=== PATIENT | male | born 1975 | race Caucasian/White ===

== ENCOUNTER 2017-04-08 20:58 | Emergency (ER) | payer OTHER ==
[2017-04-08 21:28] VITALS: BP 125/71; PULSE 75; TEMP 98.5; BMI 46.9
--- NOTE | 2017-04-08 22:36 | PDOC ---
History of Present Illness <Lili Belle - Last Filed: 04/08/17 23:40> - General History Source: Patient Exam Limitations: No Limitations - History of Present Illness Initial Comments: 04/08/17 22:30 41yo Male patient w/ PmHx: Erectile Dysfunction recently on testosterone replacement therapy, which has since stopped and he was prescribed Cialis. Patient c/o RLE pain across dorsal aspect of right foot radiating up lateral aspect of right ortega. He states symptoms began yesterday. He denies fall, injury , trauma, fever, cough, back pain, CP, Diff breathing, or any other complaints at this time. No OTC medication use reported. Occurred: reports: yesterday Severity: Yes: mild Lower Extremity Pain Location: right: leg Method of Injury: No: unknown, assault, burn, direct blow, fell, incised, motor vehicle accident, sports injury, twisted, other Modifying Factors: worse with: None, cold therapy, immobilization, pain medication, rest, other Associated Symptoms: None <Tonja Zamudio - Last Filed: 04/09/17 00:01> - General Chief Complaint: Pain Stated Complaint: LEG PAIN Time Seen by Provider: 04/08/17 21:58 Lower Ext. Injury Location - Specific Injury Location Legs: right: soft tissue tenderness, pain, left: non-tender, bilateral: normal inspection, normal range of motion <Tonja Zamudio - Last Filed: 04/09/17 00:01> Extremity Pain Location - Extremity Pain Location Extremity Pain Locations: right: leg <Tonja Zamudio - Last Filed: 04/09/17 00:01> Past History <Lili Belle - Last Filed: 04/08/17 23:40> - Travel Traveled outside of the country in the last 30 days: No Close contact w/someone who was outside of country & ill: No - Past Medical History Disorders: Yes (ED) - Suicide/Smoking/Psychosocial Hx Smoking History: Never smoked Have you smoked in the past 12 months: No Information on smoking cessation initiated: No Hx Alcohol Use: No Drug/Substance Use Hx: No Substance Use Type: None <Tonja Zamudio - Last Filed: 04/09/17 00:01> - Past Medical History Allergies/Adverse Reactions: Allergies Allergy/AdvReac Type Severity Reaction Status Date / Time No Known Allergies Allergy Verified 04/08/17 21:25 Home Medications: Ambulatory Orders Ibuprofen 800 mg PO Q6H PRN #20 tablet 04/08/17 Review of Systems - Review of Systems Able to Perform ROS?: Yes Is the patient limited [place] proficient: No Musculoskeletal: Yes: Other (Leg Pain) All Other Systems: Reviewed and Negative <Tonja Zamudio - Last Filed: 04/09/17 00:01> *Physical Exam - Vital Signs Last Vital Signs Temp Pulse Resp BP Pulse Ox 98.5 F 75 20 125/71 98 04/08/17 21:26 04/08/17 21:26 04/08/17 21:26 04/08/17 21:26 04/08/17 21:26 <Lili Belle - Last Filed: 04/08/17 23:40> - Vital Signs Last Vital Signs Temp Pulse Resp BP Pulse Ox 98.5 F 75 20 125/71 98 04/08/17 21:26 04/08/17 21:26 04/08/17 21:26 04/08/17 21:26 04/08/17 21:26 - Physical Exam General Appearance: Yes: Nourished, Appropriately Dressed. No: Apparent Distress, Mild Distress, Moderate Distress, Severe Distress Respiratory/Chest: positive: Lungs Clear, Normal Breath Sounds. negative: Chest Tender, Respiratory Distress, Accessory Muscle Use, Labored Respiration, Rapid RR Cardiovascular: positive: Regular Rhythm, Regular Rate Gastrointestinal/Abdominal: positive: Normal Bowel Sounds, Soft. negative: Distended, Guarding, Rebound, Tenderness Musculoskeletal: positive: Normal Inspection. negative: CVA Tenderness, Decreased Range of Motion, Vertebral Tenderness Extremity: positive: Normal Capillary Refill, Normal Inspection, Normal Range of Motion, Other (No redness, tenderness, swelling, inflammation, or signs of infection or injury noted.). negative: Pedal Edema, Swelling, Calf Tenderness, Erythema, Inflammation Integumentary: positive: Normal Color, Dry, Warm Neurologic: positive: plant quality manager II-XII NML intact, Fully Oriented, Alert, Normal Mood/ Affect, Normal Response, Motor Strength 5/5 <Tonja Zamudio - Last Filed: 04/09/17 00:01> ED Treatment Course - LABORATORY CBC & Chemistry Diagram: 04/08/17 21:15 04/08/17 23:15 - ADDITIONAL ORDERS Additional order review: 04/08/17 21:15 RBC 5.03 MCV 88.0 MCHC 33.4 RDW 14.2 MPV 8.8 Neutrophils % 36.6 L Lymphocytes % 46.9 H Monocytes % 12.7 H Eosinophils % 2.9 Basophils % 0.9 - RADIOLOGY Radiograph Interpretation: 04/08/17 23:40 EXAM: Right lower extremity duplex venous ultrasound HISTORY:Right leg pain COMPARISON: None. FINDINGS Negative for right lower extremity deep venous thrombosis Robert Isabel MD 04/08/2017 23:24 EST <Lili Belle - Last Filed: 04/08/17 23:40> - LABORATORY CBC & Chemistry Diagram: 04/08/17 21:15 04/08/17 23:15 - RADIOLOGY Radiology Studies Ordered: Category Date Time Status DUPLEX VASCUL US-1 LEG [US] Stat Ultrasound 04/08/17 22:26 Ordered <Tonja Zamudio - Last Filed: 04/09/17 00:01> *DC/Admit/Observation/Transfer - Attestations Scribe Attestion: 04/08/17 23:40 Documentation prepared by Lili Belle, acting as bacteriologist medical for Sid Zamudio NP. <Lili Belle - Last Filed: 04/08/17 23:40> - Discharge Dispostion Admit: No <Tonja Zamudio - Last Filed: 04/09/17 00:01> Diagnosis at time of Disposition: Nerve pain Leg pain Qualifiers: Laterality: right Qualified Code(s): M79.604 - Pain in right leg; M79.604 - Pain in right leg - Discharge Dispostion Disposition: HOME Condition at time of disposition: Stable - Prescriptions Prescriptions: Ibuprofen 800 mg PO Q6H PRN #20 tablet PRN Reason: Leg Pain - Referrals Referrals: Benny Duffy MD [Primary Care Provider] - Robert Palmer MD [Staff Physician] - - Patient Instructions Printed Discharge Instructions: Neuropathic Pain, DI for Leg Pain Additional Instructions: Follow up with Dr. Palmer (Neurology) this week for further evaluation. Call to schedule appointment. Take medications as prescribed and return if your symptoms worsen or any concerns for further evaluation. Print Language: DANISH
[2017-04-08 23:23] LABS: BASOPHIL 0.9 % (0-2.0); EOSINOPHIL 2.9 % (0-4.5); MCH 29.4 pg (25.7-33.7); MCHC 33.4 g/dl (32.0-35.9); MEAN PLT VOLUME 8.8 fl (7.5-11.1); NEUTROPHILS 36.6 % (42.8-82.8); PLATELET COUNT 193 K/MM3 (134-434); RDW 14.2 % (11.9-15.9); WHITE BLOOD COUNT 6.6 K/mm3 (4.0-10.0)
[2017-04-08 23:36] LABS: INR 1.11 (0.82-1.09); PROTHROMBIN TIME (PATIENT) 12.2 SEC (9.98-11.88)
[2017-04-08 23:38] LABS: ACTIVATED PTT 32.9 SECONDS (26.9-34.4)
[2017-04-08] MEDS ORDERED: DEXAMETHASONE SOD PHOSPHATE 10 MG/1 ML VIAL IM ONE (23:46)
[2017-04-08 23:50] LABS: ALBUMIN 3.4 g/dl (3.4-5.0); ALK PHOS 86 U/L (45-117); ANION GAP 10 (8-16); BILIRUBIN,TOTAL 0.4 mg/dL (0.2-1.0); CALCIUM 8.4 mg/dL (8.5-10.1); CO2 25 mmol/L (21-32); CREATININE 0.9 mg/dL (0.7-1.3); GLUCOSE,RANDOM 116 mg/dL (74-106); SGOT/AST 21 U/L (15-37); SGPT/ALT 33 U/L (12-78); TOT PROT 7.1 g/dl (6.4-8.2)
[2017-04-08] MEDS ORDERED: KETOROLAC TROMETHAMINE 60 MG/2 ML VIAL IM ONE (23:50)
[2017-04-09] MEDS ORDERED: KETOROLAC TROMETHAMINE 60 MG/2 ML VIAL ONE (00:07)
[2017-04-09] MEDS ORDERED: DEXAMETHASONE SOD PHOSPHATE 10 MG/1 ML VIAL ONE (00:07)
== END 2017-04-09 00:19 | disposition home or self-care (01) ==
LOC: JER 20:58
PROC: 3E0233Z Introduction of Anti-inflammatory into Muscle, Percutaneous Approach (ICD-10-PCS; principal; 2017-04-08)
PROC: 3E023GC Introduction of Other Therapeutic Substance into Muscle, Percutaneous Approach (ICD-10-PCS; 2017-04-08)
DX: G58.8 Other specified mononeuropathies (principal); M79.661 Pain in right lower leg
CPT/HCPCS: 36415; 80053; 85025; 85610; 85730; 93971-TC; 99281-25

== ENCOUNTER 2020-03-01 16:02 | Emergency (ER) | payer OTHER ==
[2020-03-01] MEDS ORDERED: ACETAMINOPHEN 500 MG TABLET (FP) PO ONE (16:07)
--- NOTE | 2020-03-01 16:10 | PDOC ---
Rapid Medical Evaluation Time Seen by Provider: 03/01/20 16:06 Medical Evaluation: Allergies Allergy/AdvReac Type Severity Reaction Status Date / Time No Known Allergies Allergy Verified 04/08/17 21:25 03/01/20 16:09 CC: fever, fatigue, body aches x 2 days, works as a tech at [employer] Exam: tachy, febrile, lcta, no resp distree Plan: tylenol, covid 03/01/20 16:10 HPI: COVID-19 CDC guideline data points: The patient is a 44 M presents with possible exposure to, suspected, or confir med] COVID-19 with associated symptoms of [fever, dry cough, complicated by obesity ROS: NEGATIVE: difficulty breathing, shortness of breath, chest pain, lightheadedness, dizziness, nausea, vomiting and diarrhea. Other 12 point ROS reviewed and negative. Exam: General: NAD, Well-Appearing, Awake, Alert Oriented x3. ENT: No rhinorrhea or nasal congestion. Neck: FROM, no midline tenderness. Lungs: Clear to auscultation bilaterally without wheezes, rhonchi or rales. Normal excursion. Patient is able to speak in full sentences. Heart: HR: tachycardic Abdomen: Non-distended. MSK/Extremities: No decrease ROM, No obvious deformities. No obvious cyanosis noted. Neuro: Normal Gait, Cranial Nerves II through XII Grossly Intact. Skin: No obvious rashes, bruising. Color Normal Appearing. Assessment/Plan: [Cough/fever] Patient has a history of obesity denies recent travel Covid and tylenol ordered Discharge Disposition - Diagnosis Fever - Discharge Dispostion Disposition: HOME Condition at time of disposition: Good - Referrals Referrals: Benny Duffy MD [Primary Care Provider] - - Patient Instructions - Post Discharge Activity Work/School Note: Back to Work Activity Comments: Please take tylenol for fever and pain. Drink plenty of fluids Stay active We will call you with the results within 1-2 days
[2020-03-01 16:21] VITALS: BP 155/98; PULSE 107; TEMP 101.6; BMI 48.7
[2020-03-01] MEDS ORDERED: ACETAMINOPHEN 325 MG TABLET (FP) ONE (16:35)
== END 2020-03-01 16:40 | disposition home or self-care (01) ==
LOC: JER 16:02
DX: U07.1 COVID-19 (principal)
CPT/HCPCS: 87070; 87880; 99283-25; U0003

== ENCOUNTER 2021-06-21 05:36 | Emergency (ER) | payer OTHER ==
[2021-06-21] MEDS ORDERED: ACETAMINOPHEN 500 MG TABLET (FP) PO ONE (05:53)
[2021-06-21 06:14] VITALS: BMI 48.7
[2021-06-21] MEDS ORDERED: ACETAMINOPHEN 325 MG TABLET (FP) ONE (06:27)
[2021-06-21 08:08] VITALS: BP 114/74; PULSE 100; TEMP 99.9
== END 2021-06-21 08:08 | disposition home or self-care (01) ==
LOC: JER 05:36
DX: B34.9 Viral infection, unspecified (principal)
CPT/HCPCS: 87804; 93005; 93010; 99284-25; C9803; U0003; U0005

== ENCOUNTER 2024-03-10 02:29 | Emergency (ER) | payer OTHER ==
[2024-03-10 02:42] VITALS: BMI 44.9
[2024-03-10] MEDS: ACETAMINOPHEN 500 MG TABLET (FP) PO ONE (03:09)
[2024-03-10] MEDS ORDERED: ACETAMINOPHEN 325 MG TABLET (FP) ONE (03:10)
[2024-03-10 04:24] LABS: HIV INTERPRETATION NEGATIVE (NEGATIVE)
[2024-03-10 04:39] VITALS: RESP 19
[2024-03-10] MEDS: SODIUM CHLORIDE 0.9% 500 ML INFUS.BAG IV ONE (04:47)
[2024-03-10 06:02] VITALS: BP 106/59; PULSE 105; TEMP 99.9
[2024-03-10] MEDS ORDERED: IBUPROFEN 400 MG TABLET (FP) PO ONE (06:09)
[2024-03-10] MEDS: IBUPROFEN 400 MG TABLET (FP) PO ONE (06:22)
== END 2024-03-10 06:22 | disposition home or self-care (01) ==
LOC: JER 02:29
DX: R51.9 Headache, unspecified (principal); B34.9 Viral infection, unspecified; R53.83 Other fatigue; R68.83 Chills (without fever); R00.0 Tachycardia, unspecified; Z20.822 Contact with and (suspected) exposure to COVID-19
CPT/HCPCS: 0241U-QW; 36415; 86803; 87389; 93005; 93010; 99284-25

== ENCOUNTER 2024-03-21 22:50 | Day surgery (SDC) | payer OTHER ==
[2024-03-21 22:58] VITALS: BMI 44.9
[2024-03-22 00:58] LABS: BASO % 0.2 % (0-2.0); EOS % 0.1 % (0-4.5); HEMATOCRIT 48.9 % (35.4-49); HEMOGLOBIN 16.5 GM/dL (11.7-16.9); MCHC 33.7 g/dl (32.0-35.9); MEAN CELL VOLUME 86.1 fl (80-96); MEAN PLT VOLUME 8.3 fl (7.5-11.1); NEUT % 73.7 % (42.8-82.8); PLATELET COUNT 262 10^3/uL (134-434); RBC 5.67 M/mm3 (4.00-5.60); RDW 14.4 % (11.9-15.9); WHITE BLOOD COUNT 13.5 K/mm3 (4.0-10.0)
[2024-03-22 01:04] LABS: INR 1.1 (0.83-1.09); PROTHROMBIN TIME (PATIENT) 12.6 SEC (9.7-13.0)
[2024-03-22 01:07] LABS: ACTIVATED PTT 33.8 SECONDS (25.2-36.5)
[2024-03-22] MEDS: FAMOTIDINE 20 MG/50 ML IVPB 20 MG/50 ML MG IVPB ONE (01:12)
[2024-03-22] MEDS: morphine CARPU-JECT 2 MG/1 ML DISP.SYRIN IVPUSH ONE ×2 (01:12→07:01)
[2024-03-22] MEDS: ACETAMINOPHEN 1000 MG/100 ML BAG IVPB ONE ×2 (01:12→07:01)
[2024-03-22] MEDS ORDERED: FAMOTIDINE 20 MG/50 ML IVPB 20 MG/50 ML MG IVPB ONE (01:15)
[2024-03-22] MEDS ORDERED: ACETAMINOPHEN INJECTION 100 ML ONE ×3 (01:15→12:45)
[2024-03-22] MEDS ORDERED: MORPHINE SULFATE 2 MG/ML SYRINGE ONE ×2 (01:15→06:53)
[2024-03-22 01:32] LABS: POTASSIUM 3.9 mmol/L (3.5-5.1)
[2024-03-22 01:34] LABS: CALCIUM 9.1 mg/dL (8.5-10.1)
[2024-03-22 01:35] LABS: ALBUMIN 3.5 g/dl (3.4-5.0); BLOOD UREA NITROGEN 13.1 mg/dL (7-18)
[2024-03-22 01:38] LABS: CREATININE 0.9 mg/dL (0.55-1.3)
[2024-03-22 01:39] LABS: TOT PROT 7.3 g/dl (6.4-8.2)
[2024-03-22 02:39] LABS: EPI CELLS 34 /uL (0-25.1); HYALINE CASTS 5 /uL (0-3.1); PH,URINE 6.5 (5.0-8.0); URINE APPEARANCE CLEAR; URINE BACTERIA 10 /uL (0-1359); URINE BILIRUBIN NEGATIVE (NEGATIVE); URINE COLOR YELLOW; URINE GLUCOSE (UA) 1+ (NEGATIVE); URINE KETONE NEGATIVE (NEGATIVE); URINE LEUK ESTERASE 1+ (NEGATIVE); URINE NITRITE NEGATIVE (NEGATIVE); URINE PROTEIN 2+ (NEGATIVE); URINE RBC 311 /uL (0-23.9); URINE WBC 427 /uL (0-25.8)
[2024-03-22] MEDS: PIPERACILLIN/TAZOB 3.375 GM 3.375 GM in DEXTROSE 5%-WATER - 50 ML IVPB ONE (02:59)
[2024-03-22] MEDS ORDERED: PIPERACILLIN/TAZOB 3.375 GM 3.375 GM/50 ML BAG IVPB ONE (03:00)
[2024-03-22] MEDS ORDERED: MORPHINE SULFATE 2 MG/ML SYRINGE IVPUSH PRN (06:05)
[2024-03-22] MEDS ORDERED: ACETAMINOPHEN 325 MG TABLET (FP) PO PRN (06:05)
[2024-03-22] MEDS: SODIUM CHLORIDE 1,000 ML IV SCH (07:01)
[2024-03-22] MEDS ORDERED: PROMETHAZINE HCL 25 MG/1 ML VIAL IVPB PRN ×2 (12:42→14:39)
[2024-03-22] MEDS ORDERED: ONDANSETRON 4 MG/2 ML VIAL IVPUSH PRN ×2 (12:42→14:39)
[2024-03-22] MEDS ORDERED: PIPERACILLIN/TAZOBACTAM 3.375 GM VIAL IVPB ONE (12:45)
[2024-03-22] MEDS ORDERED: ROCURONIUM BROMIDE 50 MG/5 ML SYRINGE ONE ×2 (12:50→13:36)
[2024-03-22] MEDS ORDERED: MIDAZOLAM HCL 2 MG/2 ML SINGLE DOSE VIAL ONE (12:50)
[2024-03-22] MEDS: PIPERACILLIN/TAZOBACTAM 3.375 GM VIAL IVPB ONE (13:13)
[2024-03-22] MEDS: BUPIVACAINE HCL/PF 0.5% (5 MG/ML) 30 ML VIAL IJ ONE (13:25)
[2024-03-22] MEDS ORDERED: KETOROLAC TROMETHAMINE 30 MG/1 ML VIAL ONE (14:15)
[2024-03-22] MEDS ORDERED: SUGAMMADEX SODIUM 200 MG/2 ML VIAL ONE (14:16)
[2024-03-22] MEDS: LACTATED RINGERS SOLUTION 1,000 ML IV SCH ×2 (14:45→16:44)
[2024-03-22] MEDS ORDERED: INSULIN ASPART SLIDING SCALE (NOVOLOG) 1 VIAL SQ SCH (16:30)
[2024-03-22] MEDS: INSULIN ASPART SLIDING SCALE (NOVOLOG) 1 VIAL SQ SCH (17:28)
[2024-03-22] MEDS: oxyCODONE HCL 5 MG TABLET PO PRN (21:27)
[2024-03-22] MEDS: ACETAMINOPHEN 325 MG TABLET (FP) PO PRN (21:28)
[2024-03-22 21:48] VITALS: RESP 20
[2024-03-23 01:16] VITALS: TEMP 98.6
[2024-03-23 06:21] VITALS: BP 103/55; PULSE 87
[2024-03-23 10:31] LABS: BASO % 0.1 % (0-2.0); HEMATOCRIT 44.4 % (35.4-49); HEMOGLOBIN 14.5 GM/dL (11.7-16.9); LYMPH % 9.1 % (8-40); MCH 28.7 pg (25.7-33.7); MCHC 32.6 g/dl (32.0-35.9); MEAN CELL VOLUME 88.2 fl (80-96); MEAN PLT VOLUME 8.9 fl (7.5-11.1); MONO % 7.5 % (3.8-10.2); NEUT % 83.3 % (42.8-82.8); PLATELET COUNT 222 10^3/uL (134-434); RBC 5.03 M/mm3 (4.00-5.60); WHITE BLOOD COUNT 16.1 K/mm3 (4.0-10.0)
[2024-03-23 10:49] LABS: CALCIUM 8.2 mg/dL (8.5-10.1)
[2024-03-23 10:50] LABS: ALBUMIN 2.9 g/dl (3.4-5.0); BLOOD UREA NITROGEN 11.2 mg/dL (7-18)
[2024-03-23 10:52] LABS: CREATININE 0.8 mg/dL (0.55-1.3)
[2024-03-23 10:55] LABS: TOT PROT 6.8 g/dl (6.4-8.2)
== END 2024-03-23 14:22 | disposition home or self-care (01) ==
LOC: JER 22:50 → UNDOADMIN 03-22 04:23 → JERBED 03-22 04:23 → INTOOBSV 03-22 06:39 → UNDOADMOB 03-22 06:39 → JERBED 03-22 06:39 → J8W 03-22 10:02 → JERBED 03-22 10:02 → JASUSAT 03-22 11:42 → SUATTDRO 03-22 11:42 → J8W 03-22 11:42 → UNDOADMOB 03-22 11:42 → J8W 03-22 15:52 → JASUSAT 03-23 14:22
PROVIDERS: ATTEND Student in an Organized Health Care Education/Training Program
PROC: 0DTJ4ZZ Resection of Appendix, Percutaneous Endoscopic Approach (ICD-10-PCS; principal; 2024-03-22 11:00)
DX: K35.890 Other acute appendicitis without perforation or gangrene (principal)
CPT/HCPCS: 0241U-QW; 36415; 74177-TC; 80053; 81003; 82962; 83690; 85025; 85610; 85730; 86850; 86900; 86901; 87040; 87086; 88304-TC; 93005; 93010; 94760; 99285-25; J0131; Q9967